=== PATIENT | female | born 1995 | race Caucasian/White ===

== ENCOUNTER 2016-10-08 | Emergency (ER) | payer OTHER ==
[2016-10-08] MEDS ORDERED: Acetaminophen TAB* 325 MG PO ONE (03:41)
[2016-10-08 04:14] LABS: Hematocrit 38 % (35-47); Hemoglobin 13.2 g/dl (12.0-16.0); Mean Corpuscular HGB Conc 35 g/dl (31-36); Mean Corpuscular Hemoglobin 30 pg (27-31); Mean Corpuscular Volume 85 fL (80-97); Mean Platelet Volume 8 um3 (7.4-10.4); Red Blood Count 4.48 10^6/ul (4.0-5.4); Red Cell Distribution Width 13 % (10.5-15); White Blood Count 7.1 10^3/ul (3.5-10.8)
[2016-10-08 04:28] LABS: Albumin 4.4 g/dL (3.2-5.2); BUN/Creatinine Ratio 10.7 (8-20); Calcium 9.6 mg/dL (8.6-10.3); EGFR Non-African American 84.8 (>60); Globulin 2.4 g/dL (2-4); Potassium 3.4 mmol/L (3.5-5.0); Total Bilirubin 0.9 mg/dL (0.2-1.0); Total Protein 6.8 g/dL (6.4-8.9)
[2016-10-08 06:43] LABS: Urine Bacteria 1+ (Absent); Urine Bilirubin Negative (Negative); Urine Glucose Negative (Negative); Urine Nitrite Negative (Negative)
--- NOTE | 2016-10-08 08:36 | ED ---
Diego Richey Thomas, scribed for Tavia Hicks MD on 10/08/16 at 0607 . Allergic Reaction/Systemic - HPI Summary HPI Summary: The pt is a 21 y/o F presenting to the ED c/o with concerns that she is having a reaction to the rabies vaccine. She was administered the 2nd of three vaccines for pre-exposure rabies on 10/07/16. Pt c/o fever, tingling on her fingers, chills, facial swelling, and urinary frequency. The pt rates the pain 4 /10. The pain is aggravated and alleviated by nothing. 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 Pt denies any swelling, urticaria, SOB, throat tightness, cough, sputum, sore throat, dysuria, and hematuria. PMHx: polycystic kidney disease and asthma. PSHx: none. SHx: no smoking, rare alcohol use, no illicit drug use. FHx: CA. She denies any recent sick contacts. Pt is a [employer] student, does not know who the physician ordering the vaccine is. - History of Current Complaint Chief Complaint: EDFever Time Seen by Provider: 10/08/16 05:49 Hx Obtained From: Patient Onset/Duration: Sudden Onset, Started hours ago - 10/07/16 at 14:00 was the vaccine, approx 2200 were the fever and systemic sxs, Resolved Timing: Constant Severity Initially: Moderate Severity Currently: Severe Pain Intensity: 4 Pain Scale Used: 0-10 Numeric Location: Diffuse Character: Swelling Aggravating Factor(s): Nothing Alleviating Factor(s): Nothing Associated Signs And Symptoms: Positive: Other: - POS: tingling to her fingers, chills, facial swelling, fever, urinary frequency; NEG: any swelling at the vaccine site, urticaria, cough, sputum, sore throat, dysuria, hematuria. Negative: Cough Wheezing, Difficulty Breathing, Rash, Throat Tightening - Related Hx Possible Reaction To: Medications - 2nd rabies vaccine - Allergies/Home Medications Allergies/Adverse Reactions: Allergies Allergy/AdvReac Type Severity Reaction Status Date / Time No Known Allergies Allergy Verified 10/08/16 00:14 PMH/Surg Hx/FS Hx/Imm Hx Previously Healthy: No Cardiovascular History: Denies: Hx Myocardial Infarction Respiratory History: Reports: Hx Asthma Denies: Hx Chronic Obstructive Pulmonary Disease (COPD) History: Reports: Hx Renal Disease - Hx Polycystic Kidney Disease - Surgical History Surgery Procedure, Year, and Place: None Infectious Disease History: No Infectious Disease History: Denies: Traveled Outside the US in Last 30 Days - Family History Known Family History: Positive: Other - POS: [place], polycystic kidney disease (no one on dialysis) - Social History Occupation: Student - [employer] student Alcohol Use: Rare Substance Use Type: Reports: None Smoking Status (MU): Never Smoked Tobacco Review of Systems Positive: Fever - Tmax 102, Chills Positive: Other - POS: facial swelling Cardiovascular: Negative Negative: Cough, Other - NEG: throat tightness, sputum production Positive: frequency. Negative: dysuria, hematuria Negative: Other - NEG: any swelling at the site of vaccine Skin: Negative Neurological: Other - POS: tingling to fingers All Other Systems Reviewed And Are Negative: Yes Physical Exam Triage Information Reviewed: Yes Vital Signs On Initial Exam: Initial Vitals Temp Pulse Resp BP Pulse Ox 102.2 F 123 18 122/68 100 10/08/16 00:11 10/08/16 00:11 10/08/16 00:11 10/08/16 00:11 10/08/16 00:11 Vital Signs Reviewed: Yes Appearance: Positive: Well-Appearing, No Pain Distress, Well-Nourished Skin: Positive: Warm, Skin Color Reflects Adequate Perfusion, Other - vaccine site left upper arm without redness, swelling or pain on palpation. Head/Face: Positive: Normal Head/Face Inspection Eyes: Positive: Conjunctiva Clear ENT: Positive: Normal ENT inspection, Pharynx normal, Other - no hoarseness, no uvula edema Neck: Positive: Supple Respiratory/Lung Sounds: Positive: Clear to Auscultation, Breath Sounds Present , Other - No respiratory distress Cardiovascular: Positive: RRR, Pulses are Symmetrical in both Upper and Lower Extremities, Other - Brisk cap refill. Negative: Murmur Abdomen Description: Positive: Nontender, Soft Bowel Sounds: Positive: Present Musculoskeletal: Positive: Strength/ROM Intact Neurological: Positive: Alert, Oriented to Person Place, Time, Facial Symmetry, Speech Normal, Other - Motor intact Psychiatric: Positive: Normal - Homero Coma Scale Coma Scale Total: 15 Diagnostics - Vital Signs Vital Signs Temp Pulse Resp BP Pulse Ox 10/08/16 04:04 105 95 10/08/16 04:00 120/53 10/08/16 03:56 102 97 10/08/16 03:48 99.3 F 10/08/16 03:30 137 125/54 95 10/08/16 03:00 109 126/54 97 10/08/16 02:30 110 122/54 96 10/08/16 02:00 114 114/49 99 10/08/16 01:31 110 116/51 98 10/08/16 01:25 102.5 F 119 97 10/08/16 01:24 113/64 10/08/16 00:15 102.2 F 123 18 122/68 100 10/08/16 00:11 102.2 F 123 18 122/68 100 - Laboratory Lab Results: Lab Results 10/08/16 10/08/16 Range/Units 04:03 04:03 WBC 7.1 (3.5-10.8) 10^3/ul RBC 4.48 (4.0-5.4) 10^6/ul Hgb 13.2 (12.0-16.0) g/dl Hct 38 (35-47) % MCV 85 (80-97) fL MCH 30 (27-31) pg MCHC 35 (31-36) g/dl RDW 13 (10.5-15) % Plt Count 153 (150-450) 10^3/ul MPV 8 (7.4-10.4) um3 Neut % (Auto) 88.1 H (38-83) % Lymph % (Auto) 3.0 L (25-47) % [place] % (Auto) 7.5 (1-9) % Eos % (Auto) 1.2 (0-6) % Baso % (Auto) 0.2 (0-2) % Absolute Neuts (auto) 6.2 (1.5-7.7) 10^3/ul Absolute Lymphs (auto) 0.2 L (1.0-4.8) 10^3/ul Absolute Monos (auto) 0.5 (0-0.8) 10^3/ul Absolute Eos (auto) 0.1 (0-0.6) 10^3/ul Absolute Basos (auto) 0 (0-0.2) 10^3/ul Absolute Nucleated RBC 0 10^3/ul Nucleated RBC % 0 Sodium 134 (133-145) mmol/L Potassium 3.4 L (3.5-5.0) mmol/L Chloride 104 (101-111) mmol/L Carbon Dioxide 23 (22-32) mmol/L Anion Gap 7 (2-11) mmol/L BUN 9 (6-24) mg/dL Creatinine 0.84 (0.51-0.95) mg/dL Est GFR ( Amer) 109.0 (>60) Est GFR (Non-Af Amer) 84.8 (>60) BUN/Creatinine Ratio 10.7 (8-20) Glucose 111 H (70-100) mg/dL Calcium 9.6 (8.6-10.3) mg/dL Total Bilirubin 0.90 (0.2-1.0) mg/dL AST 15 (13-39) U/L ALT 14 (7-52) U/L Alkaline Phosphatase 47 (34-104) U/L Total Protein 6.8 (6.4-8.9) g/dL Albumin 4.4 (3.2-5.2) g/dL Globulin 2.4 (2-4) g/dL Albumin/Globulin Ratio 1.8 (1-3) Result Diagrams: 10/08/16 04:03 10/08/16 04:03 Lab Statement: Any lab studies that have been ordered have been reviewed, and results considered in the medical decision making process. Allergic Reaction Course/Dx - Course Course Of Treatment: At 06:10, I spoke with [facility] answering service requesting to talk to a physician. 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 0815: Gita Park returns the call and states that this would be unusual as a reaction to the vaccine, but will have the physician for the [facility] get in touch with [employer] [facility] Service to help assess if pt should have the vaccine, the third and final dose. - Diagnoses Differential Diagnosis/HQI/PQRI: Positive: Local Allergic Reaction, Other - Fever unknown origin, systemic allergic reaction Provider Diagnoses: Fever and chills, Rabies vaccine adverse reaction Discharge - Discharge Plan Condition: Stable Disposition: HOME Patient Education Materials: Rabies Vaccine (By injection), Fever in Adults (ED ) Referrals: [facility] [Primary Care Provider] - Additional Instructions: WE have spoken with Gita Park the nurse telephone messenger for [facility]. They will be consulting with their physician as to whether this is an adverse reaction to the rabies vaccine and whether you should receive the vaccine for your third dose. They will notify the [facility] dept as to whether they advise the vaccine. There is a urine culture pending for you. We will notify you if you need further treatment based on those results. Return to the ER if you have any new or worsening symptoms. The documentation as recorded by the Diego everett Thomas accurately reflects the service I personally performed and the decisions made by , Tavia Hicks MD.
[2016-10-08 08:47] VITALS: BP 110/67
== END 2016-10-08 08:55 | disposition home or self-care (01) ==
LOC: ED
DX: T88.1XXA Other complications following immunization, not elsewhere classified, initial encounter (principal); R50.9 Fever, unspecified
CPT/HCPCS: 36415; 80053; 81003; 81015; 85025; 87040; 87086; 99282; A9270-GY

== ENCOUNTER 2017-10-19 22:58 | Emergency (ER) | payer OTHER ==
[2017-10-20 01:19] LABS: ABS Basophils 0 10^3/ul (0-0.2); ABS Eosinophils 0.2 10^3/ul (0-0.6); ABS Lymphocytes 1.5 10^3/ul (1.0-4.8); ABS Monocytes 0.4 10^3/ul (0-0.8); ABS Neutrophils 4.4 10^3/ul (1.5-7.7); ABS Nucleated RBC 0 10^3/ul; Eosinophil % 3.2 % (0-6); Hematocrit 42 % (35-47); Hemoglobin 14.4 g/dl (12.0-16.0); Lymphocyte % 22.9 % (25-47); Mean Corpuscular HGB Conc 35 g/dl (31-36); Mean Corpuscular Hemoglobin 29 pg (27-31); Mean Corpuscular Volume 84 fL (80-97); Mean Platelet Volume 7.8 um3 (7.4-10.4); Nucleated Red Blood Cells % 0.1; Platelet Count 179 10^3/ul (150-450); Red Blood Count 4.96 10^6/ul (4.00-5.40); Red Cell Distribution Width 13 % (10.5-15); White Blood Count 6.4 10^3/ul (3.5-10.8)
[2017-10-20 01:39] LABS: EGFR Non-African American 85.2 (>60)
[2017-10-20] MEDS ORDERED: Ketorolac INJ* 30 MG/ML 1 ML VIAL IV PUSH ONE (01:43)
[2017-10-20] MEDS ORDERED: Iohexol 300* (CONTRAST) 10 ML SDV IV ONE (02:05)
--- NOTE | 2017-10-20 02:08 | ED ---
GI/ HPI - HPI Summary HPI Summary: 22-year-old female presents with epigastric abdominal pain for the past day. States the pain is progressively getting worse. She states 2 days ago she had calms but no one else is sick. She states that before the pain started she had some diarrhea and vomited once. States she's been feeling nauseous. She denies any blood in her stool. No abnormal vaginal discharge. No dysuria, urgency, frequency or hematuria. has never had this pain before. No previous belly surgeries. No cough. No sore throat. She states the pain is a crampy pain pain is intermittent and has been getting worse. She has history of renal cysts and issues with her kidneys. - History of Current Complaint Chief Complaint: EDAbdPain Time Seen by Provider: 10/20/17 00:44 Stated Complaint: ABD PAIN Pain Intensity: 8 - Allergy/Home Medications Allergies/Adverse Reactions: Allergies Allergy/AdvReac Type Severity Reaction Status Date / Time No Known Allergies Allergy Verified 10/19/17 22:59 PMH/Surg Hx/FS Hx/Imm Hx Endocrine/Hematology History: Denies: Hx Anticoagulant Therapy Cardiovascular History: Denies: Hx Myocardial Infarction Respiratory History: Reports: Hx Asthma Denies: Hx Chronic Obstructive Pulmonary Disease (COPD) GI History: Reports: Other GI Disorders - Hx Polycystic Kidney Disease History: Reports: Hx Renal Disease - Hx Polycystic Kidney Disease - Surgical History Surgery Procedure, Year, and Place: None Infectious Disease History: No Infectious Disease History: Denies: Traveled Outside the [place] in Last 30 Days - Family History Known Family History: Positive: Other - POS: [place], polycystic kidney disease (no one on dialysis) - Social History Alcohol Use: Rare Substance Use Type: Reports: None Smoking Status (MU): Never Smoked Tobacco Review of Systems Negative: Fever Negative: Chest Pain Negative: Shortness Of Breath Positive: Abdominal Pain, Vomiting, Diarrhea, Nausea All Other Systems Reviewed And Are Negative: Yes Physical Exam Triage Information Reviewed: Yes Vital Signs On Initial Exam: Initial Vitals Temp Pulse Resp BP Pulse Ox 99.0 F 92 18 134/92 98 10/19/17 22:59 10/19/17 22:59 10/19/17 22:59 10/19/17 22:59 10/19/17 22:59 Vital Signs Reviewed: Yes Appearance: Positive: Well-Appearing Skin: Positive: Warm, Dry Head/Face: Positive: Normal Head/Face Inspection Eyes: Positive: Normal, Conjunctiva Clear ENT: Positive: Pharynx normal Respiratory/Lung Sounds: Positive: Clear to Auscultation, Breath Sounds Present Cardiovascular: Positive: Normal, RRR Abdomen Description: Positive: Soft, Other: - tenderness epigastric LUQ, LLQ and epigastric. Negative: Guarding Bowel Sounds: Positive: Present Musculoskeletal: Positive: Normal Neurological: Positive: Normal Psychiatric: Positive: Normal Diagnostics - Vital Signs Vital Signs Temp Pulse Resp BP Pulse Ox 10/20/17 01:14 82 140/98 98 10/19/17 22:59 99.0 F 92 18 134/92 98 - Laboratory Lab Results: Lab Results 10/20/17 10/20/17 Range/Units 01:09 01:10 WBC 6.4 (3.5-10.8) 10^3/ul RBC 4.96 (4.00-5.40) 10^6/ul Hgb 14.4 (12.0-16.0) g/dl Hct 42 (35-47) % MCV 84 (80-97) fL MCH 29 (27-31) pg MCHC 35 (31-36) g/dl RDW 13 (10.5-15) % Plt Count 179 (150-450) 10^3/ul MPV 7.8 (7.4-10.4) um3 Neut % (Auto) 68.0 (38-83) % Lymph % (Auto) 22.9 L (25-47) % [place] % (Auto) 5.5 (0-7) % Eos % (Auto) 3.2 (0-6) % Baso % (Auto) 0.4 (0-2) % Absolute Neuts (auto) 4.4 (1.5-7.7) 10^3/ul Absolute Lymphs (auto) 1.5 (1.0-4.8) 10^3/ul Absolute Monos (auto) 0.4 (0-0.8) 10^3/ul Absolute Eos (auto) 0.2 (0-0.6) 10^3/ul Absolute Basos (auto) 0 (0-0.2) 10^3/ul Absolute Nucleated RBC 0 10^3/ul Nucleated RBC % 0.1 Sodium 137 (135-145) mmol/L Potassium 3.4 L (3.5-5.0) mmol/L Chloride 107 (101-111) mmol/L Carbon Dioxide 23 (22-32) mmol/L Anion Gap 7 (2-11) mmol/L BUN 8 (6-24) mg/dL Creatinine 0.83 (0.51-0.95) mg/dL Est GFR ( Amer) 103.1 (>60) Est GFR (Non-Af Amer) 85.2 (>60) BUN/Creatinine Ratio 9.6 (8-20) Glucose 129 H (70-100) mg/dL Calcium 9.4 (8.6-10.3) mg/dL Total Bilirubin 0.40 (0.2-1.0) mg/dL AST 15 (13-39) U/L ALT 15 (7-52) U/L Alkaline Phosphatase 50 (34-104) U/L C-Reactive Protein 41.89 H (<8.01) mg/L Total Protein 6.5 (6.4-8.9) g/dL Albumin 4.1 (3.2-5.2) g/dL Globulin 2.4 (2-4) g/dL Albumin/Globulin Ratio 1.7 (1-3) Lipase 15 (11.0-82.0) U/L Beta HCG, Quant < 0.60 mIU/mL Result Diagrams: 10/20/17 01:09 10/20/17 01:10 Lab Statement: Any lab studies that have been ordered have been reviewed, and results considered in the medical decision making process. Re-Evaluation - Re-Evaluation First Eval Re-Evaluation Time: 02:10 Change: Improved Comment: feeling better after toradol, discussed lab results with patient GIGU Course/Dx - Course Course Of Treatment: 22-year-old female presents with epigastric abdominal pain for the past day. States the pain is progressively getting worse. She states 2 days ago she had calms but no one else is sick. She states that before the pain started she had some diarrhea and vomited once. States she's been feeling nauseous. She denies any blood in her stool. No abnormal vaginal discharge. No dysuria, urgency, frequency or hematuria. has never had this pain before. No previous belly surgeries. No cough. No sore throat. She states the pain is a crampy pain pain is intermittent and has been getting worse. She has history of renal cysts and issues with her kidney. On exam has tenderness in left upper and epigastric region. He has mild tenderness in left lower quadrant. white blood cell count normal. CRP elevated. Discuss with progressively worsening pain will get a CT. patient signed out to dr Johnson pending CT for disposition. - Diagnoses Differential Diagnoses - Female: Cholelithiasis, Cholecystitis, Diverticulitis, Gastroenteritis (Viral) Provider Diagnoses: Abdominal pain Discharge - Sign-Out/Discharge Documenting (check all that apply): Sign-Out Patient Signing out patient TO: Jacy Johnson - Discharge Plan Referrals: No Primary Care Phys,NOPCP [Primary Care Provider] -
[2017-10-20 02:35] LABS: Urine Appearance Clear; Urine Blood Negative (Negative); Urine Color Straw; Urine Ketones Negative (Negative); Urine Protein Negative (Negative); Urine Specific Gravity 1.004 (1.010-1.030); Urine Urobilinogen Negative (Negative)
--- NOTE | 2017-10-20 03:28 | RAD ---
EXAM: CT Abdomen and Pelvis With Intravenous Contrast CLINICAL HISTORY: 22 years old, female; Pain; Abdominal pain; Epigastric; Additional info: Epigastric pain TECHNIQUE: Axial computed tomography images of the abdomen and pelvis with intravenous contrast. All CT scans at this facility use at least one of these dose optimization techniques: automated exposure control; mA and/or kV adjustment per patient size (includes targeted exams where dose is matched to clinical indication); or iterative reconstruction. Coronal and sagittal reformatted images were created and reviewed. CONTRAST: 103 mL of OMNI 300 administered intravenously. COMPARISON: PELVIC US PELVIC 12/02/2016 2:34 PM FINDINGS: Lung bases: Unremarkable. No mass. No consolidation. ABDOMEN: Liver: Unremarkable. No mass. Gallbladder and bile ducts: The gallbladder is contracted and evaluation is limited. No calcified stones. No ductal dilation. Pancreas: Unremarkable. No mass. No ductal dilation. Spleen: Unremarkable. No splenomegaly. Adrenals: Unremarkable. No mass. Kidneys and ureters: There is an irregular shaped area of diminished attenuation in the right kidney measuring 1.5 x 2.2 x 1.3 cm. It has a density reading of 23 Hounsfield units. The left kidney is enlarged measuring 16.3 cm and there are multiple left renal cysts. There is a 2.5 mm nonobstructing left calculus. Stomach and bowel: There is abnormal thickening of the wall of the terminal ileum. No obstruction. PELVIS: Appendix: The appendix is normal in appearance. Bladder: Unremarkable. No mass. Reproductive: Pessary is seen in place. ABDOMEN and PELVIS: Intraperitoneal space: Small amount of free intraperitoneal fluid is seen in the pelvic area centrally and on the right side. No free air. Bones/joints: No acute fracture. No dislocation. Soft tissues: Unremarkable. Vasculature: Unremarkable. No abdominal aortic aneurysm. Lymph nodes: Unremarkable. No enlarged lymph nodes. IMPRESSION: Bilateral renal cysts, much more severe on the left side. Enlarged left kidney. Nonobstructing left renal calculus. Abnormally thickened terminal ileum raising the possibility of terminal ileitis, ischemia, or edema. Ascites.
--- NOTE | 2017-10-20 03:39 | ED ---
Progress - Progress Note Progress Note: Patient was signed out to Dr. Jacy Johnson via HAYLEY Carbone, awaiting CT A/P, pending disposition. CT A/P: IMPRESSION: Bilateral renal cysts, much more severe on the left side. Enlarged left kidney. Nonobstructing left renal calculus. Abnormally thickened terminal ileum raising the possibility of terminal ileitis, ischemia, or edema. Ascites. Re-Evaluation - Re-Evaluation First Eval Re-Evaluation Time: 02:10 Change: Improved Comment: feeling better after toradol, discussed lab results with patient Course/Dx - Course Course Of Treatment: A 22 y/o female presents to ED c/o epigastric abdominal pain. A CT A/P revealed bilateral renal cysts, much more severe on the left side. Enlarged left kidney. Nonobstructing left renal calculus. Abnormally thickened terminal ileum raising the possibility of terminal ileitis, ischemia, or edema. Ascites. In the ED course, the patient recieved Bentyl, Toradol and Omnipaque. MD spoke to patient who revealed she has had N/V/D and abdominal pain for past 2-3 days. Patient does not have any liquid cytosis. CAT scan revealed possible thickening of illium, however patient most likely have gastroenteritis. Patient will be discharged with a diagnosis of gastroenteritis. Patient is to follow up with PCP in 1-2 days. Patient is agreeable with this plan. - Diagnoses Provider Diagnoses: Gastroenteritis Discharge - Sign-Out/Discharge Documenting (check all that apply): Patient Departure - DISCHARGE - Discharge Plan Condition: Stable Disposition: HOME Prescriptions: Dicyclomine CAP* [Bentyl CAP*] 10 mg PO TID PRN #20 cap PRN Reason: Pain Patient Education Materials: Gastroenteritis (ED) Referrals: No Primary Care Phys,NOPCP [Primary Care Provider] - [facility] [Outside] - 2 Days Additional Instructions: FOLLOW UP WITH PRIMARY CARE IN 1-2 DAYS. TAKE MEDICATION PRESCRIBED. RETURN TO ED FOR ANY NEW OR WORSENING SYMPTOMS. - Attestation Statements Document Initiated by Kamiibe: Yes Documenting Scribe: Felipe Lopez Provider For Whom Linsey is Documenting (Include Credential): Flores Stiles Attestation: Felipe Richey scribed for Jacy Johnson on 10/20/17 at 0349.
[2017-10-20] MEDS ORDERED: Dicyclomine CAP* 10 MG PO ONE (03:46)
[2017-10-20 04:18] VITALS: BP 124/72
== END 2017-10-20 04:16 | disposition home or self-care (01) ==
LOC: ED 22:58
DX: R10.13 Epigastric pain (principal); R11.2 Nausea with vomiting, unspecified; R19.7 Diarrhea, unspecified; N28.1 Cyst of kidney, acquired; N20.0 Calculus of kidney; R18.8 Other ascites
CPT/HCPCS: 36415; 74177; 80053; 81003; 83690; 84702; 85025; 86140; 96374; 99283; A9270-GY; J1885; Q9967